=== PATIENT | male | born 1995 | race Caucasian/White ===

== ENCOUNTER 2016-09-20 14:40 | Emergency (ER) | payer OTHER | END 2016-09-20 17:17 | disposition left against medical advice (07) | LOC: UCEAST 14:40 | DX: H92.09 Otalgia, unspecified ear (principal); Z53.21 Procedure and treatment not carried out due to patient leaving prior to being seen by health care provider ==

== ENCOUNTER 2016-09-20 15:44 | Emergency (ER) | payer OTHER ==
[2016-09-20 15:48] VITALS: BP 137/79
[2016-09-20] MEDS ORDERED: Acetaminophen TAB* 325 MG PO ONE (16:27)
[2016-09-20] MEDS ORDERED: LoraTADine TAB(NF) 10 MG TAB (AUTOSUB CETIRIRIZINE) PO ONE (16:28)
--- NOTE | 2016-09-20 16:43 | ED ---
Throat Pain/Nasal Congestion - HPI Summary HPI Summary: Patient arrives to ED with CC of right ear pressure and pain x 2 hours. Denies surgeries, infections or tubes in the ears. 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 Patient denies recent illness, cough, sore throat or other flu like symptoms. - History of Current Complaint Chief Complaint: EDEarPain Time Seen by Provider: 09/20/16 16:09 Hx Obtained From: Patient Onset/Duration: Sudden Onset Severity: Moderate - Epiglottits Risk Factors Epiglottis Risk Factors: Negative - Allergies/Home Medications Allergies/Adverse Reactions: Allergies Allergy/AdvReac Type Severity Reaction Status Date / Time Codeine Allergy Unknown Verified 09/20/16 15:46 Reaction Details PMH/Surg Hx/FS Hx/Imm Hx Previously Healthy: Yes Infectious Disease History: No Infectious Disease History: Denies: Traveled Outside the [place] in Last 30 Days - Social History Occupation: Unemployed Lives: With Family Alcohol Use: Weekly Alcohol Amount: one beer a week Hx Substance Use: No Substance Use Type: Reports: Excessive Caffeine Substance Use Comment - Amount & Last Used: 4-5 cups a day Hx Tobacco Use: No Smoking Status (MU): Never Smoked Tobacco Review of Systems Constitutional: Negative Eyes: Negative Positive: Ear Ache Cardiovascular: Negative Respiratory: Negative Positive: no symptoms reported, see HPI Skin: Negative Neurological: Negative Psychological: Normal All Other Systems Reviewed And Are Negative: Yes Physical Exam Triage Information Reviewed: Yes Vital Signs On Initial Exam: Initial Vitals Temp Pulse Resp BP Pulse Ox 97.5 F 76 18 137/79 100 09/20/16 15:46 09/20/16 15:46 09/20/16 15:46 09/20/16 15:46 09/20/16 15:46 Vital Signs Reviewed: Yes Appearance: Positive: Well-Appearing, Well-Nourished Skin: Positive: Warm, Skin Color Reflects Adequate Perfusion Eyes: Positive: Normal, HIWOT ENT: Positive: TM red, Other - cerumen impaction of right ear Neck: Positive: Supple, No Lymphadenopathy Respiratory/Lung Sounds: Positive: Clear to Auscultation, Breath Sounds Present Cardiovascular: Positive: Normal, RRR Abdomen Description: Positive: Nontender Bowel Sounds: Positive: Present Neurological: Positive: Normal, Sensory/Motor Intact, Alert, Oriented to Person Place, Time Psychiatric: Positive: Normal AVPU Assessment: Alert Diagnostics - Vital Signs Vital Signs Temp Pulse Resp BP Pulse Ox 09/20/16 15:46 97.5 F 76 18 137/79 100 - Laboratory Lab Statement: Any lab studies that have been ordered have been reviewed, and results considered in the medical decision making process. EENT Course/Dx - Course Course Of Treatment: Ears irrigated with normal saline. Minimal cerumen discharge with irrigation. Loratadine given. Tylenol given for discomfort. Right TM redness. Patient feeling better after irrigation. Patient OK for discharge home. - Differential Diagnoses Differential Diagnoses: Cerumen Impaction, Odontogenic Pain, Otitis Externa, Otitis Media, Pain of Unknown Etiology, Other - ear pressure - Diagnoses Provider Diagnoses: Ear pain, right Discharge - Discharge Plan Condition: Stable Disposition: HOME Patient Education Materials: Earache (ED) Referrals: [facility] [place] [Primary Care Provider] - Additional Instructions: Tylenol 650mg as needed for ear discomfort. Debrox solution. This is over the counter and will help soften the ear wax to help it dislodge Zyrtec or Claritin over the counter as needed for ear pressure related to weather changes and illness
[2016-09-20] MEDS ORDERED: Cetirizine* 10 MG TAB PO ONE (17:00)
== END 2016-09-20 18:05 | disposition home or self-care (01) ==
LOC: ED 15:44
DX: H92.01 Otalgia, right ear (principal)
CPT/HCPCS: 99282; A9270-GY